=== PATIENT | male | born 1995 | race Hispanic/Latino ===

== ENCOUNTER 2017-11-26 18:33 | Emergency (ER) | payer BC ==
[2017-11-26] MEDS ORDERED: NA CHLORIDE 0.9% 1,000 ML ONE (19:15)
[2017-11-26 19:20] LABS: Glucose Level 100 mg/dL (65-120)
[2017-11-26 19:26] LABS: ALT/SGPT 19 IU/L (10-60); AST/SGOT 22 IU/L (10-42); Albumin 4.1 g/dL (3.2-5.5); Alkaline Phosphatase 52 IU/L (42-121); BUN Blood Urea Nitrogen 12 mg/dL (6-20); Bilirubin Direct 0.1 mg/dL (0-0.2); Protein, Total 7.1 g/dL (6.0-8.3)
[2017-11-26 19:27] LABS: Alcohol Serum/Plasma 65 mg/dl; Bicarbonate 20 mEq/L (21-31); Salicylates Level < 4.0 mg/dl (<30); Sodium Level 141 mEq/L (135-145)
[2017-11-26 19:32] LABS: Absolute Lymphocytes (CBC) 1.1 K/uL (0.7-4.9); Absolute Monocytes 0.7 K/uL (0.1-1.3); Absolute Neutrophil 4.3 K/uL (1.8-8.0); Basophils % 1.9 % (0-1.3); Eosinophils % 1.2 % (0-4.4); Hematocrit 39.7 % (39.6-49.0); Lymphocytes % 17.5 % (15.3-44.8); MCV 86.6 fL (80-100); MPV 8.4 fL (7.6-11.3); Monocytes % 10.4 % (3.3-12.3); RBC Red Blood Cell Count 4.58 M/uL (4.33-5.43)
[2017-11-26 19:33] LABS: Protime INR 1.05
[2017-11-26] MEDS ORDERED: POTASSIUM CL SA 10 MEQ TAB PO ONE (20:44)
[2017-11-26] MEDS ORDERED: POTASSIUM 25 MEQ EFFERV TAB ONE (20:54)
[2017-11-26 21:30] LABS: Urine Blood NEGATIVE (NEG); Urine Glucose NEGATIVE (NEG); Urine Protein NEGATIVE (NEG); Urine pH 6.5 (5.0-7.0)
[2017-11-26 22:05] LABS: Barbiturates NEGATIVE; Benzodiazepines NEGATIVE; Cocaine NEGATIVE; METHAMPHETAM NEGATIVE; Opiates NEGATIVE; Phencyclidine NEGATIVE; THC Cannibis NEGATIVE
[2017-11-26 23:52] LABS: Salicylates Level < 4.0 mg/dl (<30)
[2017-11-27] MEDS ORDERED: WATER FOR INJ,STERILE 10 ML ONE (00:45)
[2017-11-27] MEDS ORDERED: ZIPRASIDONE MESYLA 20 MG/VIAL IM ONE (00:45)
--- NOTE | 2017-11-27 06:34 | EDPHYS ---
Physician Documentation [facility] Name: Qasim Enciso Age: 21 yrs Sex: Male : 1995 Arrival Date: 11/26/2017 Time: 18:35 Bed 7 Private MD: ED Physician Miguelito Yung HPI: 11/26 18:50 This 21 yrs old Male presents to ER via EMS with complaints of Overdose. cp 22:06 The patient presents to the emergency department after a known overdose, that was cp intentional. Context: Method: the patient has a confirmed or suspected ingestion, OTC 5mg Melatonin tablets approximately 110 and unknown number of Xanax tablets prescribed to grandmother. Associated signs and symptoms: Pertinent positives: depression, Pertinent negatives: apnea, visual hallucinations. Severity of symptoms: in the emergency department the symptoms are unchanged despite EMS interventions. Historical: - Allergies: 18:57 No Known Allergies; sv - Home Meds: 18:57 Xanax Oral [Active]; melatonin 5 mg Oral tab [Active]; sv - PMHx: 18:57 None; sv - PSHx: 18:57 None; sv - Immunization history:: Adult Immunizations up to date. - Social history:: Patient/guardian denies using street drugs, Smoking status: Patient uses tobacco products, smokes one pack cigarettes per day. ROS: 19:00 Constitutional: Negative for fever. cp 19:00 Cardiovascular: Negative for chest pain. 19:00 Respiratory: Negative for distress. 19:00 Neuro: Positive for drowsiness. 19:00 Psych: Positive for depression, suicide gesture. 19:00 Unable to obtain ROS due to patient being uncooperative. Exam: 19:05 ECG was reviewed by the Attending Physician. cp 19:08 Head/Face: Normocephalic, atraumatic. cp 19:08 Constitutional: The patient appears in no acute distress, awake, non-diaphoretic, non-toxic, well developed, well nourished. 19:08 Eyes: Periorbital structures: appear normal, Pupils: constricted, bilaterally, Conjunctiva: normal, no exudate, no injection, Sclera: no appreciated abnormality, Lids and lashes: appear normal, bilaterally. 19:08 ENT: External ear(s): are unremarkable, Ear canal(s): are normal, clear, TM's: bulging, is not appreciated, bilaterally, dullness, bilaterally, erythema, is not appreciated, bilaterally, Nose: is normal, Mouth: Lips: moist, Oral mucosa: moist, Posterior pharynx: Airway: no evidence of obstruction, patent. 19:08 Neck: ROM/movement: is normal, is supple, without pain, no range of motions limitations, no nuchal rigidity. 19:08 Chest/axilla: Inspection: normal, Palpation: is normal, no crepitus, no tenderness. 19:08 Cardiovascular: Rate: normal, Rhythm: regular, Pulses: Pulses are 2+ in right radial artery and left radial artery. Edema: is not appreciated, JVD: is not appreciated. 19:08 Respiratory: the patient does not display signs of respiratory distress, Respirations: normal, no use of accessory muscles, no retractions, no splinting, no tachypnea, labored breathing, is not present, Breath sounds: are clear throughout, no decreased breath sounds, no stridor, no wheezing. 19:08 Abdomen/GI: Inspection: abdomen appears normal, Bowel sounds: active, all quadrants, Palpation: abdomen is soft and non-tender, in all quadrants, rebound tenderness, is not appreciated, voluntary guarding, is not appreciated, involuntary guarding, is not appreciated. 19:08 Back: pain, is absent. 19:08 Musculoskeletal/extremity: Exam is negative for decreased range of motion, deformity, injury. 19:08 Skin: cellulitis, is not appreciated, no rash present. 19:08 Neuro: Orientation: unable to test, the patient refuses to cooperate, Mentation: sleepy, Motor: moves all fours, strength is normal. Vital Signs: 18:40 BP 119 / 85; Pulse 88 MON; Resp 20; Temp 98.7(O); Pulse Ox 100% on R/A; Weight 58.97 kg sv (R); Height 5 ft. 6 in. (167.64 cm) (R); Pain 0/10; 19:12 Pulse Ox 100% on 2 lpm NC; sv 20:30 BP 120 / 79; Pulse 84; Resp 16; Pulse Ox 100% on R/A; Pain 0/10; ao 21:07 BP 119 / 85; Pulse 95; Resp 14; Pulse Ox 100% ; ao 21:46 BP 109 / 70; Pulse 93; Resp 18; Pulse Ox 100% on R/A; Pain 0/10; cc 22:30 BP 113 / 73; Pulse 75; Resp 16; Pulse Ox 99% ; Pain 0/10; ao 05 00:20 BP 108 / 73; Pulse 68; Resp 18; Pulse Ox 100% on R/A; Pain 0/10; ao 02:28 BP 97 / 57; Pulse 52; Resp 14; Pulse Ox 97% on R/A; Pain 0/10; ao 05:50 BP 117 / 67; Pulse 67; Resp 14; Temp 98.6; Pulse Ox 100% ; Pain 0/10; ao 07:29 BP 107 / 56; Pulse 71; Resp 18; Temp 97.6; Pulse Ox 98% ; sv 11/26 18:40 Body Mass Index 20.98 (58.97 kg, 167.64 cm) sv 18:40 Sinus Rhythm 11/26 19:[address] Yung MDM: 18:37 Patient medically screened. cp 19:00 Differential diagnosis: intentional overdose, depression, acute psychosis. cp 19:20 Other consultation: Poison control, at 19:15, recommend 4 hr tylenol and aspirin level cp check. No activated charcoal due to drowsiness. Supportive treatment. 21:45 Data reviewed: vital signs, nurses notes, lab test result(s), EKG, and as a result, I cp will contact [facility] for patient evaluation. 11/26 18:46 Order name: Acetaminophen; Complete Time: 20:01 11/26 18:46 Order name: Basic Metabolic Panel; Complete Time: 20: 11/27 02:53 Interpretation: CA 9.0. tw4 11/26 18:46 Order name: CBC with Diff; Complete Time: 20:01 11/26 18:46 Order name: ETOH Level; Complete Time: 20:01 11/26 18:46 Order name: Hepatic Function; Complete Time: 20:01 11/26 18:46 Order name: PT-INR; Complete Time: 20:01 11/26 18:46 Order name: Ptt, Activated; Complete Time: 20:01 11/26 18:46 Order name: Salicylate; Complete Time: 20:01 11/26 18:46 Order name: Urine Drug Screen; Complete Time: 22:40 11/26 21:02 Order name: Urine Dipstick--Ancillary (enter results); Complete Time: 21:40 mw2 11/26 22:41 Order name: Tylenol Level: redraw 2300; Complete Time: 02:53 cp 11/26 22:41 Order name: Asprin: redraw 2300; Complete Time: 02:53 cp 11/27 01:54 Order name: Potassium ao 11/27 01:55 Order name: Potassium; Complete Time: 02:53 EDMS 11/26 18:46 Order name: EKG; Complete Time: 18:49 cp 11/26 18:46 Order name: EKG - Nurse/Tech; Complete Time: 19:12 cp 11/26 18:46 Order name: IV Saline Lock; Complete Time: 19:12 cp 11/26 18:46 Order name: Labs collected and sent; Complete Time: 19:12 cp 11/26 18:46 Order name: Urine Dipstick-Ancillary (obtain specimen); Complete Time: 21:41 cp EC:05 Rate is 79 beats/min. Rhythm is regular. [place] interval is normal. QRS interval is cp prolonged at 102 msec. QT interval is normal. T waves are Inverted in lead aVL. Interpreted by me. Reviewed by me. Administered Medications: 19:17 Drug: NS 0.9% 1000 ml Route: IV; Rate: 1 bolus; Site: right antecubital; sv 20:58 Not Given (Duplicate Order): Potassium Chloride 20 mEq IV at calculated rate once; ao administer over 1-2 hours 20:58 Drug: Potassium Chloride 20 mEq Route: PO; ao 20:58 Drug: Potassium Effervescent Tablet 50 mEq Route: PO; ao 11/27 01:02 Drug: Geodon 10 mg Route: IM; Site: left deltoid; lp1 01:40 Follow up: Response: Marked relief of symptoms; Anxiety decreased lp1 Disposition: 11/27/17 06:34 Transfer ordered to Psych Facility. Diagnosis are Suicidal ideations, Suicide attempt, Hypokalemia. - Reason for transfer: Higher level of care. - Accepting physician is Dr Ba. - Condition is Stable. - Problem is an ongoing problem. - Symptoms are unchanged. Addendum: 12/05/2017 06:00 Co-signature as Attending Physician, Miguelito Yung MD I agree with the assessment and w a plan of care. Signatures: Dispatcher [employer] EDMS Eduardo, Tiffany, RN RN sv Yarelis Lemons RN RN lp1 Zaki Bernal PA PA cp Ortiz, Alex RN RN ao Miguelito Yung MD MD wa Wadley, Terrence, MD MD tw4 Corrections: (The following items were deleted from the chart) 11/27 06:34 06:34 11/27/2017 06:34 Transfer ordered to Psych Facility. Diagnosis is Suicidal tw4 ideations; Suicide attempt. Reason for transfer: Higher level of care. Accepting physician is Dr Ba. Condition is Stable. Problem is an ongoing problem. Symptoms are unchanged. tw4 07:46 06:34 11/27/2017 06:34 Transfer ordered to Psych Facility. Diagnosis is Suicidal sv ideations; Suicide attempt; Hypokalemia. Reason for transfer: Higher level of care. Accepting physician is Dr Ba. Condition is Stable. Problem is an ongoing problem. Symptoms are unchanged. tw4
--- NOTE | 2017-11-27 06:34 | ER ---
Nurse's Notes [facility] Name: Qasim Enciso Age: 21 yrs Sex: Male : 1995 Arrival Date: 11/26/2017 Time: 18:35 Bed 7 Private MD: Diagnosis: Suicidal ideations;Suicide attempt;Hypokalemia Presentation: 11/26 18:32 Presenting complaint: EMS states: attempted suicide by taking an unknown amount of sv Melatonin 5 mg and Xanax at about 1810. The Melatonin bottle was full with 120 tablets with 10 remaining in the bottle. Family found pt in his room taking the pills. Pt was combative on scene and [place] [employer] was called. 18G R AC, NS 800 ml bolus given BP 132/86 HR-95 RR-20 O2 sat 100% RA. Pt was hand cuffed to bilateral wrists by [facility]. Transition of care: patient was not received from another setting of care. Onset of symptoms was November 26, 2017 at 18:10. Care prior to arrival: IV initiated. 18 GA, in the right antecubital area, Glucose check: 124. 18:32 Method Of Arrival: EMS: [facility] sv 18:32 Acuity: LOGAN 2 sv 18:33 Initial Sepsis Screen: Does the patient meet any 2 criteria? No. Patient's initial sv sepsis screen is negative. Does the patient have a suspected source of infection? No. Patient's initial sepsis screen is negative. Triage Assessment: 18:40 General: Appears in no apparent distress. comfortable, slender, well developed, sv Behavior is cooperative, drowsy, Smells of alcohol. Pain: Denies pain. EENT: No signs and/or symptoms were reported regarding the EENT system. Neuro: Level of Consciousness is awake, alert, obeys commands, lethargic, Oriented to person, place, time, situation, Moves all extremities. Full function Speech is slurred, Cardiovascular: Patient's skin is warm and dry. Pulses are 3+ in right radial artery and left radial artery. Respiratory: Respiratory effort is even, unlabored, Respiratory pattern is regular, symmetrical. GI: Abdomen is flat. : No signs and/or symptoms were reported regarding the genitourinary system. Derm: Skin is pink, warm \\T\\ dry. Musculoskeletal: No signs and/or symptoms reported regarding the musculoskeletal system. Historical: - Allergies: 18:57 No Known Allergies; sv - Home Meds: 18:57 Xanax Oral [Active]; melatonin 5 mg Oral tab [Active]; sv - PMHx: 18:57 None; sv - PSHx: 18:57 None; sv - Immunization history:: Adult Immunizations up to date. - Social history:: Patient/guardian denies using street drugs, Smoking status: Patient uses tobacco products, smokes one pack cigarettes per day. Screenin:57 Abuse screen: Denies threats or abuse. Denies injuries from another. Nutritional sv screening: No deficits noted. Tuberculosis screening: No symptoms or risk factors identified. Fall Risk No fall in past 12 months (0 pts). No secondary diagnosis (0 pts). IV access (20 points). Ambulatory Aid- None/Bed Rest/Nurse Assist (0 pts). Gait- Normal/Bed Rest/Wheelchair (0 pts) Mental Status- Oriented to own ability (0 pts). Total Hartley Fall Scale indicates No Risk (0-24 pts). Assessment: 18:58 Reassessment: Zaki ABERNATHY speaking with poison control. sv 19:30 General: Appears in no apparent distress. comfortable, Behavior is drowsy. ao 19:30 Pain: Denies pain. Neuro: Level of Consciousness is Patient sleeping with minimum ao stimuli. Cardiovascular: Capillary refill < 3 seconds Patient's skin is warm and dry. Respiratory: No deficits noted. Airway is patent Respiratory effort is even, unlabored, Respiratory pattern is regular, symmetrical. GI: Abdomen is non-distended. : No signs and/or symptoms were reported regarding the genitourinary system. EENT: No signs and/or symptoms were reported regarding the EENT system. Derm: Skin temperature is warm. Musculoskeletal: No signs and/or symptoms reported regarding the musculoskeletal system. 20:40 Reassessment: Patient appears in no apparent distress at this time. Patient and/or ao family updated on plan of care and expected duration. Pain level reassessed. Patient is alert, oriented x 3, equal unlabored respirations, skin warm/dry/pink. 20:55 Reassessment: Received and verbal order from Zaki Page to change the potassium 20 IV ao to 50 effervesces PO and 20 pill PO. See MAR for administration. 21:09 Reassessment: Patient asked to speak to his mother. Mother who was in the lobby was ao brought back to patient's room. 22:15 Reassessment: Patient appears in no apparent distress at this time. Patient and/or ao family updated on plan of care and expected duration. Pain level reassessed. Patient is alert, oriented x 3, equal unlabored respirations, skin warm/dry/pink. Sitter at bedside. 23:22 Reassessment: Patient getting agitated and claiming to go to the bathroom. Patient has ao been told that our protocol is to provided with a bedside commode. Patient still insisting that he wants to go to the bathroom. 23:43 Reassessment: [place] cost agent at bedside evaluating patient. ao 11/27 00:53 Reassessment: Patient appears in no apparent distress at this time. Patient was ao agitated because he has not been able to speak to his mother. 01:01 Reassessment: Patient continuing to be agitated, states "I need to take a crap but I lp1 need a real bathroom!"; Continuting to pace back and forth in room; Dr. Santana notified, Verbal order to give Geodon 10mg IM at this time. 01:39 Reassessment: Patient lying in bed, eyes closed, respirations unlabored; Mother at lp1 bedside, taking all his belongings home including wallet, cell phone, and clothing. 01:59 Reassessment: Spoke to Abbie from [facility] and the r only recommendation was ao to redraw potassium. Abbie stated that she will put information in to her system and follow up with Doctor to Doctor. 02:28 Reassessment: Patient appears in no apparent distress at this time. Patient and/or ao family updated on plan of care and expected duration. Pain level reassessed. Patient is alert, oriented x 3, equal unlabored respirations, skin warm/dry/pink. Patient sleping with no SS of distress. VS had been taking and patient wake up few seconds stated that he was sleepy and when back to sleep. 05:58 Reassessment: Patient appears in no apparent distress at this time. Patient and/or ao family updated on plan of care and expected duration. Pain level reassessed. Patient is alert, oriented x 3, equal unlabored respirations, skin warm/dry/pink. patient shows no SS of distress. Patient awake and asked if he would be able to go home. Patient was told that he is not allow to go home and would have to stay in the hospital until transferred to a [facility]. Patient has lay down to bed and is quit at this moment. 06:03 Reassessment: Spoke to Arvin from poison control who called to follow up on patient ao status. He was told that patient is stable and there are plans for patient to be transferred. 06:56 Reassessment: Transferred complete. Patient waiting on EMS at this time. ao 07:05 Reassessment: Patient appears in no apparent distress at this time. Patient and/or sv family updated on plan of care and expected duration. Pain level reassessed. Patient is alert, oriented x 3, equal unlabored respirations, skin warm/dry/pink. 07:30 Reassessment: Report given to EMS. sv Psych: 11/26 18:45 Subjective: Patient's mood is sad, hopeless, Delusions are denied, Hallucinations are sv auditory, Having thoughts of suicide. Plan for suicide is take a lot of pills. Objective: Patient is cooperative, irritable, Speech is slurred, Affect is appropriate. Interventions: Removed personal items and placed in bag. Patient placed in hospital gown. Searched person for dangerous items. Patient reassessed during use of restraints. Patient is physically safe. Patient's cardiac status is stable. Patient's respirations are even and unlabored. Patient has good circulation in all extremities as indicated by capillary refill < 3 seconds. Patient's ROM assessed and is intact. Patient nutrition and hydration needs will continue to be monitored and addressed. Patient hygiene and elimination needs met. Patient assessed for signs of distress. Patient remains reasonably comfortable at this time. Assisted patient in de-escalation of behavior by removing stimuli causing behavior where possible. Suicide Risk Assessment: Sad Person Scale: Sex of patient: Male: Score 1 point. Age of patient: Score 1 point if patient 15-34. Depression: Score 1 point if signs of depression are present. Previous Attempt: Score 1 point if patient has previously attempted suicide. Substance Abuse: Score 1 point if patient abuses alcohol or drugs. Rational Thinking: Score 0 point if patient has rational thinking. Social Support: Score 0 if social support is present/available. Organized Plan: Score 1 point if patient had a plan in place. Relationship: Score 1 point if patient is , , , or for a single male Chronic Sickness: Score 0 point if patient does not have a chronic illness, debilitating, or severe disorder. TOTAL POINTS: If total points are 7-10, the proposed clinical action is to hospitalize or commit. Implement suicide precautions. Safety Checks: Personal items have been removed. Door is open. No visitors are present at this time. Sitter at the bedside. Patient uses 1 mixed drink of liquor, Last use was doesn't remember. Patient uses benzodiazepines unknown. Commitment: Patient will be an involuntary commitment. Overdose: 18:45 Patient took Melatonin 5 mg and Xanax. Overdose occurred 30 minutes to 1 hour ago. sv Vital Signs: 18:40 BP 119 / 85; Pulse 88 MON; Resp 20; Temp 98.7(O); Pulse Ox 100% on R/A; Weight 58.97 kg sv (R); Height 5 ft. 6 in. (167.64 cm) (R); Pain 0/10; 19:12 Pulse Ox 100% on 2 lpm NC; sv 20:30 BP 120 / 79; Pulse 84; Resp 16; Pulse Ox 100% on R/A; Pain 0/10; ao 21:07 BP 119 / 85; Pulse 95; Resp 14; Pulse Ox 100% ; ao 21:46 BP 109 / 70; Pulse 93; Resp 18; Pulse Ox 100% on R/A; Pain 0/10; cc 22:30 BP 113 / 73; Pulse 75; Resp 16; Pulse Ox 99% ; Pain 0/10; ao 05/14 00:20 BP 108 / 73; Pulse 68; Resp 18; Pulse Ox 100% on R/A; Pain 0/10; ao 02:28 BP 97 / 57; Pulse 52; Resp 14; Pulse Ox 97% on R/A; Pain 0/10; ao 05:50 BP 117 / 67; Pulse 67; Resp 14; Temp 98.6; Pulse Ox 100% ; Pain 0/10; ao 07:29 BP 107 / 56; Pulse 71; Resp 18; Temp 97.6; Pulse Ox 98% ; sv 05/ 18:40 Body Mass Index 20.98 (58.97 kg, 167.64 cm) sv 18:40 Sinus Rhythm sv 11/26 19:[address] Aga leonard ED Course: 18:32 Initial lab(s) drawn, by me, sent to lab. Maintain EMS IV. Dressing intact. Good blood sv return noted. Site clean \\T\\ dry. Gauge \\T\\ site: 18G R AC. 18:35 Patient arrived in ED. iw 18:37 Zaki Bernal PA is PHCP. cp 18:37 Miguelito Yung MD is Attending Physician. cp 18:45 Patient has correct armband on for positive identification. Placed in gown. Bed in low sv position. Call light in reach. Side rails up X2. record press supervisor on. Pulse ox on. NIBP on. Head of bed elevated. 18:46 Tiffany Clark RN is Primary Nurse. sv 18:54 Triage completed. sv 18:57 Arm band placed on right wrist. sv 19:00 Safety Checks: Personal items have been removed The door is open or patient has been sv placed in a hallway bed/chair. There are no family/friend visitors at this time Sitter at the bedside. 19:11 Report given to Chirag IRVING. sv 19:15 Safety checks: Items removed: yes. Door open/sign placed on door: yes. Family/friend cc present: no. 19:17 Primary Nurse role handed off by Tiffany Clark RN sv 19:27 Yarelis Lemons RN is Primary Nurse. lp1 19:30 Safety checks: Items removed: yes. Door open/sign placed on door: yes. Family/friend cc present: no. 19:45 Safety checks: Items removed: yes. Door open/sign placed on door: yes. Family/friend cc present: no. 20:00 Safety checks: Items removed: yes. Door open/sign placed on door: yes. Family/friend cc present: no. 20:15 Safety checks: Items removed: yes. Door open/sign placed on door: yes. Family/friend cc present: no. 20:30 Safety checks: Items removed: yes. Door open/sign placed on door: yes. Family/friend cc present: no. 20:45 Safety checks: Items removed: yes. Door open/sign placed on door: yes. Family/friend cc present: no. 21:00 Safety checks: Items removed: yes. Door open/sign placed on door: yes. Family/friend cc present: yes. 21:15 Safety checks: Items removed: yes. Door open/sign placed on door: yes. Family/friend cc present: yes. 21:30 Safety checks: Items removed: yes. Door open/sign placed on door: yes. Family/friend cc present: no. 21:45 Safety checks: Items removed: yes. Door open/sign placed on door: yes. Family/friend cc present: no. 22:00 Safety checks: Items removed: yes. Door open/sign placed on door: yes. Family/friend cc present: no. 22:13 Safety checks: Items removed: yes. Door open/sign placed on door: yes. Family/friend cc present: no. 22:30 Safety checks: Items removed: yes. Door open/sign placed on door: yes. Family/friend cc present: no. 22:45 Safety checks: Items removed: yes. Door open/sign placed on door: yes. Family/friend cc present: no. 23:00 Safety checks: Items removed: yes. Door open/sign placed on door: yes. Family/friend cc present: no. 23:15 Safety checks: Items removed: yes. Door open/sign placed on door: yes. Family/friend cc present: no. 23:30 Safety checks: Items removed: yes. Safety checks: Door open/sign placed on door: yes. cc Family/friend present: no. 23:45 Safety checks: Items removed: yes. Door open/sign placed on door: yes. Family/friend cc present: no. 11/27 00:00 Safety checks: Items removed: yes. Door open/sign placed on door: yes. Family/friend cc present: no. 00:15 Safety checks: Items removed: yes. Door open/sign placed on door: yes. Family/friend cc present: no. 00:30 Safety checks: Items removed: yes. Door open/sign placed on door: yes. Family/friend cc present: no. 00:45 Safety checks: Items removed: yes. Door open/sign placed on door: yes. Family/friend cc present: no. 01:00 Safety checks: Items removed: yes. Door open/sign placed on door: yes. Family/friend cc present: no. 01:15 Safety checks: Items removed: yes. Door open/sign placed on door: yes. Family/friend cc present: no. 01:30 Safety checks: Items removed: yes. Door open/sign placed on door: yes. Family/friend cc present: no. 01:41 Pt mother Rebecca Graham phone number [phone]. cc 01:45 Safety checks: Items removed: yes. Door open/sign placed on door: yes. Family/friend cc present: no. 02:00 Safety checks: Items removed: yes. Door open/sign placed on door: yes. Family/friend cc present: no. 02:15 Safety checks: Items removed: yes. Door open/sign placed on door: yes. Family/friend cc present: no. 02:30 Safety checks: Items removed: yes. Door open/sign placed on door: yes. Family/friend cc present: no. 02:45 Safety checks: Items removed: yes. Door open/sign placed on door: yes. Family/friend cc present: no. 03:00 Safety checks: Items removed: yes. Door open/sign placed on door: yes. Family/friend cc present: no. 03:15 Safety checks: Items removed: yes. Door open/sign placed on door: yes. Family/friend cc present: no. 03:30 Safety checks: Items removed: yes. Door open/sign placed on door: yes. Family/friend cc present: no. 03:45 Safety checks: Items removed: yes. Door open/sign placed on door: yes. Family/friend cc present: no. 04:00 Safety checks: Items removed: yes. Door open/sign placed on door: yes. Family/friend cc present: no. 04:15 Safety checks: Items removed: yes. Door open/sign placed on door: yes. Family/friend cc present: no. 04:30 Safety checks: Items removed: yes. Door open/sign placed on door: yes. Family/friend cc present: no. 04:45 Safety checks: Items removed: yes. Door open/sign placed on door: yes. Family/friend cc present: no. 05:00 Safety checks: Items removed:. Safety checks: Items removed: yes. Door open/sign placed cc on door: yes. Family/friend present: no. 05:15 Safety checks: Items removed: yes. Door open/sign placed on door: yes. Family/friend cc present: no. 05:30 Safety checks: Items removed: yes. Door open/sign placed on door: yes. Family/friend cc present: no. 05:45 Safety checks: Items removed: yes. Door open/sign placed on door: yes. Family/friend cc present: no. 06:00 Safety checks: Items removed: yes. Door open/sign placed on door: yes. Family/friend cc present: no. 06:15 Safety checks: Items removed: yes. Door open/sign placed on door: yes. Family/friend cc present: no. 06:30 Safety checks: Items removed: yes. Door open/sign placed on door: yes. Family/friend cc present: no. 06:55 No provider procedures requiring assistance completed. IV discontinued, intact, ao bleeding controlled, No redness/swelling at site. Pressure dressing applied. 07:00 Safety Checks: Personal items have been removed The door is open or patient has been sv placed in a hallway bed/chair. There are no family/friend visitors at this time. 07:13 Primary Nurse role handed off by Yarelis Lemons RN sv 07:13 Tiffany Clark RN is Primary Nurse. sv 07:15 Safety Checks: Personal items have been removed The door is open or patient has been sv placed in a hallway bed/chair. There are no family/friend visitors at this time. Administered Medications: 11/26 19:17 Drug: NS 0.9% 1000 ml Route: IV; Rate: 1 bolus; Site: right antecubital; sv 20:58 Not Given (Duplicate Order): Potassium Chloride 20 mEq IV at calculated rate once; ao administer over 1-2 hours 20:58 Drug: Potassium Chloride 20 mEq Route: PO; ao 20:58 Drug: Potassium Effervescent Tablet 50 mEq Route: PO; ao 11/27 01:02 Drug: Geodon 10 mg Route: IM; Site: left deltoid; lp1 01:40 Follow up: Response: Marked relief of symptoms; Anxiety decreased lp1 Outcome: 06:34 ER care complete, transfer ordered by . tw4 06:55 Transferred by ground EMS Note: [facility] ao 06:55 Condition: stable 06:55 Instructed on the need for transfer. 07:46 Patient left the ED. sv Signatures: Tiffany Clark RN RN sv Williams, Irene, RN RN America Toussaint Yarelis Lemons RN RN lp1 Zaki Bernal PA PA cp Ortiz, Alex, RN RN ao Wadley Mickey, MD MD tw4 Corrections: (The following items were deleted from the chart) 06:29 01:45 Safety checks: Items removed: yes. Door open/sign placed on door: yes. cc Family/friend present: no. cc
--- NOTE | 2017-11-27 14:45 | EKG ---
Test Date: 2017-11-26 Test Time: 22:10:08 Hadoop Engineer: KRYSTEN MEASUREMENT RESULTS: Intervals: Rate: 72 MN: 154 QRSD: 94 QT: 352 QTc: 385 [place]: P: 81 MN: 154 QRS: 127 T: 68 INTERPRETIVE STATEMENTS: Normal sinus rhythm Right axis deviation Incomplete right bundle branch block Possible Anterior infarct, age undetermined Abnormal ECG No previous ECG available for comparison Electronically Signed On 11-27-17 14:44:20 CDT by Keo Copeland
== END 2017-11-27 07:46 ==
LOC: ER 18:33
DX: T42.4X2A Poisoning by benzodiazepines, intentional self-harm, initial encounter (principal); E87.6 Hypokalemia; F17.210 Nicotine dependence, cigarettes, uncomplicated
CPT/HCPCS: 36415; 80048; 80076; 80307; 80320; 80329; 81003; 84132; 85025; 85610; 85730; 93005; 96372; 99285; J3486; J7030